=== PATIENT | male | born 1980 | race Caucasian/White ===

== ENCOUNTER 2017-05-29 16:36 | Observation (INO) | payer OTHER ==
[2017-05-29] MEDS ORDERED: Sodium Chloride 0.9% 1,000 ML IV STA (17:35)
[2017-05-29 17:45] LABS: URINE BILIRUBIN NEGATIVE (NEGATIVE); URINE BLOOD LARGE (NEGATIVE); URINE GLUCOSE (UA) NEGATIVE (NEGATIVE); URINE LEUKOCYTE ESTERASE NEGATIVE Leu/uL (NEGATIVE); URINE NITRATE NEGATIVE (NEGATIVE); URINE PROTEIN NEGATIVE mg/dL (<30 mg/dL); URINE UROBILINOGEN 0.2 E.U./dL (<1 E.U./dL)
[2017-05-29 17:47] LABS: BASO # 0.02 K/mm3 (0.0-2.0); BASO % 0.1 % (0.0-3.0); EOS % 0.2 % (1.5-5.0); GRAN # 13.41 (1.4-6.5); GRAN % 82.3 % (50.0-68.0); LYMPH # 2.3 (1.2-3.4); LYMPH % 13.9 % (22.0-35.0); MEAN CELL VOLUME 80.1 fl (80.0-105.0); MEAN CORPUSCULAR HEMOGLOBIN 27.4 pg (25.0-35.0); MEAN CORPUSCULAR HGB CONC 34.2 g/dl (31.0-37.0); MEAN PLATELET VOLUME 10.5 fl (7.0-11.0); MONO # 0.6 (0.1-0.6); MONO % 3.5 % (1.0-6.0); RBC 5.48 10^6/uL (3.5-6.1); RED CELL DISTRIBUTION WIDTH 14.1 % (11.5-14.5); WHITE BLOOD COUNT 16.3 10^3/ul (4.5-11.0)
[2017-05-29 17:49] LABS: URINE APPEARANCE CLEAR (CLEAR); URINE COLOR YELLOW (YELLOW)
[2017-05-29 17:52] LABS: URINE BACTERIA FEW (NEG); URINE RBC 20 - 25 /hpf (0-2)
[2017-05-29 18:04] LABS: ALB/GLOB RATIO 1.6 (1.1-1.8); ALBUMIN 4.5 g/dL (3.0-4.8); ALT/SGPT 38 U/L (7-56); AST/SGOT 23 U/L (17-59); BLOOD UREA NITROGEN 16 mg/dL (7-21); CALCIUM 9.9 mg/dL (8.4-10.5); GFR AFRICAN-AMERICAN > 60; GFR NON-AFRICAN AMERICAN > 60
--- NOTE | 2017-05-29 19:35 | ED PDOC ---
Arrival/HPI - General Chief Complaint: Abdominal Pain Time Seen by Provider: 05/29/17 17:23 Historian: Patient - History of Present Illness Narrative History of Present Illness (Text): 05/29/17 19:32 36yr old male presents today with sudden onset of left flank pain radiating to the left side of the abdomen. pt states that he noticed a little back pain last night but thought nothing of it. pt states he was feeling fine this morning, ate breakfast around 10 am. pt states then at 2pm while going to eat lunch he developed sudden onset of left sided flank pain that patient states was sharp and stabbing, associated with nausea but no vomiting that radiated to the left side of the abdomen. pt c/o slight stinging sensation to penis during urination. denies fevers. c/o chills. denies hematuria. denies urinary frequency. denies diarrhea/constipation. no dizziness or weakness. no other complaints. no medications have been taking for pain at home. pt states pain has drastically improved. Symptom Onset: Sudden Symptom Course: Improving Quality: Stabbing Severity Level: 6, 10 Past Medical History - Provider Review Nursing Documentation Reviewed: Yes - Travel History Have you recently traveled outside [place] w/in the past 3 mons?: No - Infectious Disease Hx of Infectious Diseases: None - Psychiatric Hx Substance Use: No - Anesthesia Hx Anesthesia: No Hx Anesthesia Reactions: No Hx Malignant Hyperthermia: No Family/Social History - Physician Review Nursing Documentation Reviewed: Yes Family/Social History: Unknown Family HX Smoking Status: Never Smoked Hx Alcohol Use: Yes Frequency of alcohol use: Socially Hx Substance Use: No Allergies/Home Meds Allergies/Adverse Reactions: Allergies No Known Allergies Allergy (Verified 05/29/17 16:50) Home Medications: Home Meds Medication Instructions Recorded Confirmed No Known Home Med 05/29/17 05/29/17 Review of Systems - Review of Systems Constitutional: absent: Fatigue, Fevers Respiratory: absent: SOB, Cough Cardiovascular: absent: Chest Pain, Palpitations Gastrointestinal: Abdominal Pain, Nausea. absent: Constipation, Diarrhea, Vomiting Genitourinary Male: Dysuria. absent: Frequency, Hematuria, Urinary Output Changes Musculoskeletal: Back Pain. absent: Arthralgias, Neck Pain Skin: absent: Rash, Pruritis Neurological: absent: Headache, Dizziness Psychiatric: absent: Anxiety, Depression, Suicidal Ideation Physical Exam Vital Signs Reviewed: Yes Vital Signs Temp Pulse Resp BP Pulse Ox 05/29/17 18:24 79 18 121/71 98 05/29/17 16:46 98.1 F 86 20 123/76 98 Temperature: Afebrile Blood Pressure: Normal Pulse: Regular Respiratory Rate: Normal Appearance: Positive for: Well-Appearing, Non-Toxic, Comfortable Pain Distress: None Mental Status: Positive for: Alert and Oriented X 3 - Systems Exam Head: Present: Atraumatic Mouth: Present: Moist Mucous Membranes Neck: Present: Normal Range of Motion Respiratory/Chest: Present: Clear to Auscultation, Good Air Exchange. No: Respiratory Distress, Accessory Muscle Use Cardiovascular: Present: Regular Rate and Rhythm, Normal S1, S2. No: Murmurs Abdomen: Present: Normal Bowel Sounds. No: Tenderness, Distention, Peritoneal Signs, Rebound, Guarding Back: Present: Normal Inspection, Other (+ left flank tenderness). No: CVA Tenderness, Midline Tenderness, Paraspinal Tenderness, Pain with Leg Raise Upper Extremity: Present: Normal Inspection, Normal ROM Lower Extremity: Present: Normal Inspection Neurological: Present: GCS=15, Speech Normal Skin: Present: Warm, Dry, Normal Color. No: Rashes Psychiatric: Present: Alert, Oriented x 3 Medical Decision Making ED Course and Treatment: 05/29/17 19:37 Patient is nontoxic well appearing with stable vital signs presenting with left flank and left sided abdominal pain. toradol and NS given IV bolus. CBC wbc:16.3 CMP wnl Urinalysis + blood CAT scan: FINDINGS: Lower thorax: Dependent consolidations are identified within the lungs bilaterally, likely representing atelectasis. ABDOMEN: Liver: Unremarkable. No mass. Gallbladder and bile ducts: No calcified stones. No ductal dilation. Pancreas: Normal contour. No ductal dilation. Spleen: No splenomegaly. Adrenals: No mass. Kidneys and ureters: There is mild left hydronephrosis and hydroureter. A 3 mm calculus identified within the left posterior bladder at the ureterovesical junction. There is a small additional nonobstructing left renal calculus. Minimal left periureteral stranding is visualized, which is likely inflammatory or due to recent passage of a stone. There is no hydronephrosis of the right kidney. Stomach and bowel: No obstruction. No mucosal thickening. Appendix: No findings to suggest acute appendicitis. PELVIS: Bladder: See above. Reproductive: Unremarkable as visualized. ABDOMEN and PELVIS: Intraperitoneal space: No free air. Bones/joints: Mild disc bulging is identified at L4-5, with a small broad-based central protrusion at L5-S1. Vasculature: No abdominal aortic aneurysm. Lymph nodes: No enlarged lymph nodes. IMPRESSION: 1. There is mild left hydronephrosis and hydroureter. A 3 mm calculus identified within the left posterior bladder at the ureterovesical junction. There is a small additional nonobstructing left renal calculus. Minimal left periureteral stranding is visualized, which is likely inflammatory or due to recent passage of a stone. 2. Additional CT findings described above. Patient reassessment:Pt feeling much better. states pain is greatly improved. pt with temp 100.2 rectal. i spoke with dr. smiley in depth:will admit patient, give rocephin; and evaluate for stent tomorrow. blood cultures pending rocephin IV flomax po Discussed all results with patient in depth case discussed with dr. smith; accepts admission. with URologist consult dr. smiley. Impression: kidney stone, leukocytosis, fever admit to med/surg. 05/29/17 20:59 - Lab Interpretations Lab Results: 05/29/17 17:15 05/29/17 17:15 Lab Results 05/29/17 19:00: Lipase 59 05/29/17 17:15: WBC 16.3 H, RBC 5.48, Hgb 15.0, Hct 43.9, MCV 80.1, MCH 27.4, MCHC 34.2, RDW 14.1, Plt Count 248, MPV 10.5, Gran % 82.3 H, Lymph % (Auto) 13.9 L, [place] % (Auto) 3.5, Eos % (Auto) 0.2 L, Baso % (Auto) 0.1, Gran # 13.41 H , Lymph # (Auto) 2.3, [place] # (Auto) 0.6, Eos # (Auto) 0.0, Baso # (Auto) 0.02 05/29/17 17:15: Sodium 145, Potassium 4.2, Chloride 106, Carbon Dioxide 26, Anion Gap 17, BUN 16, Creatinine 1.0, Est GFR ( Amer) > 60, Est GFR (Non- Af Amer) > 60, Random Glucose 126 H, Calcium 9.9, Total Bilirubin 0.4, AST 23, ALT 38, Alkaline Phosphatase 60, Total Protein 7.4, Albumin 4.5, Globulin 2.9, Albumin/Globulin Ratio 1.6 05/29/17 17:15: Urine Color Yellow, Urine Appearance Clear, Urine pH 6.0, Ur Specific [place] >= 1.030, Urine Protein Negative, Urine Glucose (UA) Negative, Urine Ketones Negative, Urine Blood Large H, Urine Nitrate Negative, Urine Bilirubin Negative, Urine Urobilinogen 0.2, Ur Leukocyte Esterase Negative, Urine RBC 20 - 25, Urine WBC 1 - 3, Ur Epithelial Cells 3 - 4, Urine Bacteria Few - RAD Interpretation Radiology Orders: 05/29/17 18:00 ABD & PELVIS W/O PO OR IV CONT [CT] Stat - Medication Orders Current Medication Orders: Discontinued Medications Sodium Chloride (Sodium Chloride 0.9%) 1,000 mls @ 999 mls/hr IV .Q1H1M STA Stop: 05/29/17 18:35 Last Admin: 05/29/17 17:49 Dose: 999 mls/hr eMAR Start Stop Document 05/29/17 17:49 HP (Rec: 05/29/17 17:49 HP [id number]) Intravenous Solution Start Date 05/29/17 Start Time 17:49 End Date 05/29/17 End time 18:49 Total Infusion Time 60 Ketorolac Tromethamine (Toradol) 30 mg IVP STAT STA Stop: 05/29/17 17:36 Last Admin: 05/29/17 17:49 Dose: 30 mg MAR Pain Assessment Document 05/29/17 17:49 HP (Rec: 05/29/17 17:50 HP [id number]) Pain Reassessment Is this a pain reassessment? No IVP Administration Document 05/29/17 17:49 HP (Rec: 05/29/17 17:50 HP [id number]) Charges for Administration # of IVP Administrations 1 Disposition/Present on Arrival - Present on Arrival Any Indicators Present on Arrival: No History of DVT/PE: No History of Uncontrolled Diabetes: No Urinary Catheter: No History of Decub. Ulcer: No History Surgical Site Infection Following: None - Disposition Have Diagnosis and Disposition been Completed?: Yes Diagnosis: Kidney stone, Hydronephrosis, Hydroureter, Leukocytosis Disposition: HOSPITALIZED Disposition Time: 20:28 Patient Plan: Observation Patient Problems: Current Active Problems Problem Status Onset Hydronephrosis Acute Hydroureter Acute Kidney stone Acute Leukocytosis Acute Condition: FAIR Forms: [email or web address] (Algerian)
--- NOTE | 2017-05-29 20:01 | CT ---
EXAM: CT Abdomen and Pelvis Without Intravenous Contrast EXAM DATE/TIME: 05/29/2017 6:00 PM CLINICAL HISTORY: The patient age is 36 years old and is male; Pain; Abdominal pain; Flank; Left; Additional info: Left flank pain. Left abd pain Facility exam id and description: Ct abdpelscon abd pelvis w/o po or iv cont TECHNIQUE: Axial computed tomography images of the abdomen and pelvis without intravenous contrast. All CT scans at this facility use one or more dose reduction techniques, viz.: automated exposure control; ma/kV adjustment per patient size (including targeted exams where dose is matched to indication; i.e. head); or iterative reconstruction technique. Coronal and sagittal reformatted images were created and reviewed. COMPARISON: No relevant prior studies available. FINDINGS: Lower thorax: Dependent consolidations are identified within the lungs bilaterally, likely representing atelectasis. ABDOMEN: Liver: Unremarkable. No mass. Gallbladder and bile ducts: No calcified stones. No ductal dilation. Pancreas: Normal contour. No ductal dilation. Spleen: No splenomegaly. Adrenals: No mass. Kidneys and ureters: There is mild left hydronephrosis and hydroureter. A 3 mm calculus identified within the left posterior bladder at the ureterovesical junction. There is a small additional nonobstructing left renal calculus. Minimal left periureteral stranding is visualized, which is likely inflammatory or due to recent passage of a stone. There is no hydronephrosis of the right kidney. Stomach and bowel: No obstruction. No mucosal thickening. Appendix: No findings to suggest acute appendicitis. PELVIS: Bladder: See above. Reproductive: Unremarkable as visualized. ABDOMEN and PELVIS: Intraperitoneal space: No free air. Bones/joints: Mild disc bulging is identified at L4-5, with a small broad-based central protrusion at L5-S1. Vasculature: No abdominal aortic aneurysm. Lymph nodes: No enlarged lymph nodes. IMPRESSION: 1. There is mild left hydronephrosis and hydroureter. A 3 mm calculus identified within the left posterior bladder at the ureterovesical junction. There is a small additional nonobstructing left renal calculus. Minimal left periureteral stranding is visualized, which is likely inflammatory or due to recent passage of a stone. 2. Additional CT findings described above.
[2017-05-29] MEDS ORDERED: cefTRIAXone 1 gm 1 GM/100 ML BAG IVPB STA (20:29)
[2017-05-29] MEDS ORDERED: Morphine 4 mg/ml ISec IVP PRN (22:27)
[2017-05-29] MEDS ORDERED: Dextrose 5%/0.45% NS 1,000 ML IV SCH (22:30)
[2017-05-29 23:26] VITALS: TEMP 98.3; BMI 27.3
--- NOTE | 2017-05-30 03:42 | HP ---
HISTORY OF PRESENT ILLNESS: The patient is a 36-year-old, known to me from office practice. The patient has a history of nephrolithiasis. He states he was having some back pain last night, but this morning, after he had his breakfast around 10:00, he started to have some left-sided discomfort, did not pay much attention, but slowly started to get worse to the point that he started to have stabbing pain in his left flank, radiating towards his groin. So he came to Emergency Room for further evaluation. Complained of having some nausea, complained of having chills. No hematuria, no diarrhea. Does have some discomfort upon urination. PAST MEDICAL HISTORY: Only significant for nephrolithiasis, and in office exam, he was found to have hematuria. He has been following with an urologist as outpatient, but was advised to watch for now. He has no significant past medical history. ALLERGIES: NOT ALLERGIC TO ANY MEDICATION. MEDICATION: He does not take any medication at home. SOCIAL HISTORY: He is , has 1 daughter. Denies smoking, or drinking or alcohol abuse. REVIEW OF SYSTEMS: Significant for left flank pain. PHYSICAL EXAMINATION GENERAL: He is awake and alert, feels uncomfortable. VITAL SIGNS: He had spiked fever of 100.2, pulse 72, respirations 16, blood pressure 126/72. LUNGS: Bilateral good air flow. No rhonchi or crackle. HEART: S1 and S2 audible. ABDOMEN: Soft, nontender, no rebound, no guarding, except the left flank, he has some discomfort in the left costophrenic area. NEUROLOGICAL: He is awake, alert, oriented, communicative. LABORATORY DATA: WBC 16.3, hemoglobin 15, hematocrit 43, platelets 248. Chemistry: Sodium 145, potassium 4.2, chloride 106, CO2 of 26, BUN 16, creatinine 1.0, blood sugar 126. Urinalysis unremarkable. ASSESSMENT: 1. Nephrolithiasis. 2. Severe left renal colic. CT scan done showed mild hydronephrosis and has 3 mm stone in the left posterior bladder, the ureterovesical junction, and small additional non-obstructing left renal calculus, minimal left periurethral straining, probably inflammatory due to recent stone passage. PLAN: We will keep him n.p.o. after midnight for possible stent placement. We will start him on IV fluids, start him on IV antibiotics. Urinalysis has been sent. Ordered for morphine as needed. Flomax has been started. Dr. Quezada has been consulted. We will follow up this patient in the a.m. Rosa Whitten MD
[2017-05-30 08:15] VITALS: BP 103/60; PULSE 85; RESP 18; O2SAT 99
[2017-05-30 08:37] LABS: BASO # 0.02 K/mm3 (0.0-2.0); BASO % 0.2 % (0.0-3.0); EOS # 0.1 (0.0-0.7); EOS % 0.6 % (1.5-5.0); GRAN # 6.81 (1.4-6.5); HEMOGLOBIN 14.2 g/dL (14.0-18.0); LYMPH # 3.1 (1.2-3.4); LYMPH % 28.9 % (22.0-35.0); MEAN CELL VOLUME 79.8 fl (80.0-105.0); MEAN CORPUSCULAR HGB CONC 33.8 g/dl (31.0-37.0); MEAN PLATELET VOLUME 11.1 fl (7.0-11.0); MONO # 0.8 (0.1-0.6); MONO % 7.3 % (1.0-6.0); RBC 5.26 10^6/uL (3.5-6.1); RED CELL DISTRIBUTION WIDTH 14.3 % (11.5-14.5); WHITE BLOOD COUNT 10.8 10^3/ul (4.5-11.0)
[2017-05-30 08:48] LABS: ALB/GLOB RATIO 1.5 (1.1-1.8); ALBUMIN 3.9 g/dL (3.0-4.8); ALT/SGPT 33 U/L (7-56); AST/SGOT 19 U/L (17-59); BLOOD UREA NITROGEN 14 mg/dL (7-21); CALCIUM 9.4 mg/dL (8.4-10.5); GFR AFRICAN-AMERICAN > 60; GFR NON-AFRICAN AMERICAN > 60; MAGNESIUM 2.1 mg/dL (1.7-2.2); URIC ACID 5.5 mg/dL (3.5-8.5)
[2017-05-30] MEDS ORDERED: cefTRIAXone 1 gm 1 GM/100 ML BAG IVPB SCH (10:00)
--- NOTE | 2017-05-31 01:09 | CON ---
DATE: 05/30/2017 REASON FOR CONSULTATION: Severe renal colic and impending sepsis. HISTORY OF PRESENT ILLNESS: Mr. Marc Travis is a very pleasant gentleman who presents with severe renal colic and he was found to have hydroureteronephrosis and urolithiasis. He was admitted because he also had a fever and leucocytosis up to a white count of 16 plus and fever. He was admitted with impending sepsis. We started antibiotics immediately and we made recommendations for a cysto, stent insertion. That is, even though it is only a 3-mm stone, it was severely obstructed, much pain, and causing elevation of white count and a fever, we are worried about impending sepsis. Since the time of the admission, which is overnight, until this morning, the patient actually has passed a stone. He passed it in the morning at about 7:00 to 7:30. We had made arrangements for a cysto and a stent insertion for this morning. And then subsequently, we were straining the urine in the hope that the stone would pass and in fact, it has passed at this point. See the plan listed below. PAST MEDICAL AND SURGICAL HISTORY: No history of NV or CVA. SOCIAL HISTORY: He is . He has children. He works for [employer] actually. PAST MEDICAL HISTORY: No other significant history. REVIEW OF SYSTEMS: No weight loss, chest pain, or shortness of breath or the like. PHYSICAL EXAMINATION: GENERAL: A well-developed, well-nourished, currently resting comfortably in bed. VITAL SIGNS: He is actually afebrile. His vital signs are within relatively normal limits. LABORATORY DATA: See the chart. CT scan, see the chart. DIAGNOSES: 1. Urolithiasis. 2. Leukocytosis. 3. Hydroureteronephrosis. 4. Hematuria. 5. Impending sepsis. PLAN: Is as follows: We discussed options. At this point, he passed the stone. He feels much better. We discussed further recommendations and plan. RECOMMENDATIONS: As follows: He is cleared for discharge to home. We are going to send him home with antibiotics. Once we start the antibiotics, we are going to continue them. I have also given him a prescription and he had written instructions regarding taking Motrin. He was also given my phone number to call me if there are any problems. I discussed with him also travel plans for the upcoming week. After discussing all these options, the patient is cleared for discharge with antibiotics and analgesics and then further plans will follow. We also discussed stone counseling and he will come back to the office for further details. Thank you for the Urology consultation. Lance Quezada MD
--- NOTE | 2017-05-31 06:28 | DS ---
HISTORY OF PRESENT ILLNESS: The patient is 36 years old, seen and examined. He stated his pain is gone, only slight discomfort. He did pass 2 small and 1 big stone. No more urinary discomfort, no flank pain, eating and tolerating. No nausea, vomiting. No diarrhea, no fever, no chills. PHYSICAL EXAMINATION VITAL SIGNS: The patient is afebrile. Pulse 85, respirations 18, blood pressure 103/60. LUNGS: Bilateral good air flow. No rhonchi or crackles. HEART: S1 and S2 audible. ABDOMEN: Soft, nontender. No rebound, no guarding. NEUROLOGICAL: The patient is awake, alert, oriented, communicative, ambulatory. LABORATORY DATA: WBC 10.8, hemoglobin 14, hematocrit 42, platelet 246,000. Chemistry: Sodium 143, potassium 4.1, chloride 108, CO2 23, BUN 14, creatinine 0.9, blood sugar of 95. ASSESSMENT AND PLAN 1. Left renal colic. 2. Nephrolithiasis. The patient passed the stone, seems to be comfortable now. He will be discharged home today on Flomax 0.4 mg daily. He is given Cipro 500 mg twice a day for a week and he will follow up with me in office. Rosa Whitten MD
== END 2017-05-30 15:03 | disposition home or self-care (01) ==
LOC: ED 16:36 → ERH 20:59 → 5RSO 21:36
PROVIDERS: ADMIT Internal Medicine; ATTEND Internal Medicine
DX: N13.2 Hydronephrosis with renal and ureteral calculous obstruction (principal); D72.829 Elevated white blood cell count, unspecified
CPT/HCPCS: 36415; 74176; 80053; 81001; 83690; 83735; 84100; 84550; 85025; 87040; 96361; 96365; 96375; 96376; 99284; G0378; J0696; J1885; J7040; J7042